=== PATIENT | female | born 1990 | race Two or more races ===

== ENCOUNTER 2019-08-31 10:32 | Emergency (ER) | payer SELFPAY ==
[~2019-08-31] VITALS: Ht 157.5 cm; Wt 86.4 kg
--- NOTE | 2019-08-31 11:04 | NUR ---
RESEARCH LABORATORY TECHNICIAN: PT TO ROOM FROM [facility]
[2019-08-31] MEDS ORDERED: KETOROLAC 30 MG/1 ML IM ONE (11:30)
[2019-08-31] MEDS ORDERED: METF500T17 PO (11:30)
--- NOTE | 2019-08-31 11:34 | NUR ---
First contact with pt. Pt c/o intermittent [place] x2 days. Pt states that she is currently not having pain. Pt states that her vision is intermittently blurry, sometimes in both eyes, currently only blurry vision in the L eye. Pt denies other neuro sx. POC discussed. Pt denies other needs.
--- NOTE | 2019-08-31 11:52 | NUR ---
Report to Karen LEOS.
[2019-08-31 11:56] LABS: BASOPHILS # (AUTO) 0.02 x10^3/uL (0-0.1); BASOPHILS % (AUTO) 0 % (0-1); EOSINOPHILS # (AUTO) 0.07 x10^3/uL (0-0.4); EOSINOPHILS % (AUTO) 1 % (1-7); LYMPHOCYTES # (AUTO) 2.28 x10^3/uL (1-3.4); LYMPHOCYTES % (AUTO) 38 % (22-44); MD NO; MEAN CORPUSCULAR HEMOGLOBIN 27.1 pg (27.0-34.8); MEAN CORPUSCULAR HGB CONC 33.8 g/dL (32.4-35.8); MEAN CORPUSCULAR VOLUME 80.4 fL (80-100); MEAN PLATELET VOLUME 9.7 fL (7.4-10.4); MONOCYTES # (AUTO) 0.39 x10^3/uL (0.2-0.8); MONOCYTES % (AUTO) 6 % (2-9); NEUTROPHILS # (AUTO) 3.32 x10^3/uL (1.8-6.8); NEUTROPHILS % (AUTO) 55 % (42-75); PLATELET COUNT 282 x10^3/uL (130-400); RED BLOOD COUNT 4.88 x10^6/uL (3.82-5.3); RED CELL DISTRIBUTION WIDTH 12.9 % (9.6-15.2)
[2019-08-31 12:07] LABS: ALBUMIN 3.4 g/dL (3.4-5.0); ANION GAP 4 mmol/L (5-15); CALCIUM 9.3 mg/dL (8.5-10.1); CHLORIDE 106 mmol/L (98-107); CREATININE 0.54 mg/dL (0.55-1.02)
--- NOTE | 2019-08-31 12:27 | NUR ---
PT BACK FROM CT. PT DENIES PAIN AT THIS TIME. PAIN MEDS HELD AT THIS TIME.
--- NOTE | 2019-08-31 12:30 | NUR ---
ALL RESULTS ARE BACK AT THIS TIME. CHART UP FOR RECHECK.
[2019-08-31 12:37] VITALS: BP 113/74
== END 2019-08-31 13:04 | disposition home or self-care (01) ==
LOC: ED 12:30
DX: G44.219 Episodic tension-type headache, not intractable (principal)
CPT/HCPCS: 36415; 70450; 80048; 82040; 85025; 99284